=== PATIENT | female | born 1995 | race Caucasian/White ===

== ENCOUNTER → 2017-11-01 | Outpatient (CLI) | payer OTHER | LOC: FIMAGING 14:55 | DX: R06.02 Shortness of breath (principal); R07.89 Other chest pain ==

== ENCOUNTER → 2017-11-02 | Outpatient (CLI) | payer OTHER | LOC: FIMAGING 13:02 | DX: R22.31 Localized swelling, mass and lump, right upper limb (principal) ==

== ENCOUNTER 2017-11-16 23:05 | Emergency (ER) | payer OTHER ==
[2017-11-16] MEDS ORDERED: NS 1,000 ML IV ONE (23:18)
--- NOTE | 2017-11-16 23:22 | CPEKG ---
Heart Rate: 139 RR Interval: 432 P-R Interval: 128 QRSD Interval: 78 QT Interval: 276 QTC Interval: 420 P [place]: 76 QRS [place]: 63 T Wave [place]: -73 EKG Severity - ABNORMAL ECG - EKG Impression: SINUS TACHYCARDIA EKG Impression: INFERIOR Q WAVES, PROBABLY NORMAL VARIATION EKG Impression: REPOL ABNRM SUGGESTS ISCHEMIA, DIFFUSE LEADS Electronically Signed By: [place] 17-Nov-2017 07:40:31
--- NOTE | 2017-11-16 23:37 | EDPHY ---
H & P Stated Complaint: syncope ETOH and MJ Time Seen by Provider: 11/16/17 23:22 HPI/ROS: HPI The patient presents with episode of ALOC which occurred just prior to arrival. She was drinking alcohol and used a marijuana edible 10 mg. She was standing in the hallway and then began to feel lightheaded and then lost consciousness. This was witnessed by 2 friends. She does not have any chest pain, shortness of breath, palpitations. She does have a history of syncopal episodes as a a high school student. She now is feeling anxious, however denies any other complaint.. REVIEW OF SYSTEMS Constitutional: No fever, no chills. Eyes: No discharge. ENT: No sore throat. Cardiovascular: No chest pain, no palpitations. Respiratory: No cough, no shortness of breath. Gastrointestinal: No abdominal pain, no vomiting. Genitourinary: No hematuria. Musculoskeletal: No back pain. Skin: No rashes. Neurological: No headache. PMHx: History of asthma Soc Hx: Marijuana and alcohol use tonight PHYSICAL General Appearance: Alert, somewhat anxious Eyes: Pupils equal and round no pallor or injection ENT, Mouth: Mucous membranes moist Respiratory: There are no retractions, lungs are clear to auscultation Cardiovascular: Tachycardic rate and regular rhythm Gastrointestinal: Abdomen is soft and non-tender, no masses, bowel sounds normal Neurological: A&O, moves all extremities Skin: Warm and dry, no rashes Musculoskeletal: Neck is supple non tender Extremities: symmetrical, full range of motion Psychiatric: Patient is oriented X 3, there is no agitation Source: Patient, EMS Exam Limitations: Intoxication - Personal History Current Tetanus/Diphtheria Vaccine: Yes Current Tetanus Diphtheria and Acellular Pertussis (TDAP): Yes - Medical/Surgical History Hx Asthma: Yes Hx Chronic Respiratory Disease: No Hx Diabetes: No Hx Cardiac Disease: No Hx Renal Disease: No Hx Cirrhosis: No Hx Alcoholism: No Hx HIV/AIDS: No Hx Splenectomy or Spleen Trauma: No Other PMH: asthma - Social History Smoking Status: Never smoked Constitutional: Initial Vital Signs Temperature (C) 37.1 C 11/16/17 23:12 Heart Rate 140 H 11/16/17 23:12 Respiratory Rate 18 11/16/17 23:12 Blood Pressure 126/76 H 11/16/17 23:12 O2 Sat (%) 98 11/16/17 23:12 O2 Delivery Mode Room Air Allergies/Adverse Reactions: cephalexin [From Keflex] Allergy (Verified 11/16/17 23:14) Home Medications: Medication Instructions Recorded Zoloft 25mg (*) 11/16/17 Medical Decision Making - Diagnostics EKG Interpretation: EKG: Complete interpretation has been separately recorded in the [facility] archive. Summary impression: Sinus tachycardia Differential Diagnosis: 22-year-old healthy female presents with episode of ALOC with preceding lightheadedness. This is in the setting of alcohol and marijuana use tonight. On arrival, she is tachycardic without any other physical findings or complaints. She is receiving IV fluids. I have offered her Ativan, however she declines. I suspect she experienced a vasovagal episode in the setting of drug use. She does have a history of syncopal episodes in high school. I have considered arrhythmia and ectopic as well. EKG was unremarkable, basic labs were normal. The patient's heart rate improved from the 140s to 100s after several hours and with IV fluids. She eventually felt well enough to go home. Her mother was able to pick her up and she was discharged from the emergency department in good condition. - Data Points Laboratory Results: Laboratory Results 11/16/17 23:21 11/16/17 23:21 11/16/17 11/16/17 11/16/17 23:21 23:21 23:21 WBC 13.26 10^3/uL H 10^3/uL (3.80-9.50) RBC 5.28 10^6/uL 10^6/uL (4.18-5.33) Hgb 15.3 g/dL g/dL (12.6-16.3) Hct 44.2 % % (38.0-47.0) MCV 83.7 fL fL (81.5-99.8) MCH 29.0 pg pg (27.9-34.1) MCHC 34.6 g/dL g/dL (32.4-36.7) RDW 12.0 % % (11.5-15.2) Plt Count 426 10^3/uL H 10^3/uL (150-400) MPV 9.6 fL fL (8.7-11.7) Neut % (Auto) 53.3 % % (39.3-74.2) Lymph % (Auto) 36.0 % % (15.0-45.0) [place] % (Auto) 6.3 % % (4.5-13.0) Eos % (Auto) 2.7 % % (0.6-7.6) Baso % (Auto) 0.9 % % (0.3-1.7) Nucleat RBC Rel Count 0.0 % % (0.0-0.2) Absolute Neuts (auto) 7.06 10^3/uL H 10^3/uL (1.70-6.50) Absolute Lymphs (auto) 4.77 10^3/uL H 10^3/uL (1.00-3.00) Absolute Monos (auto) 0.84 10^3/uL H 10^3/uL (0.30-0.80) Absolute Eos (auto) 0.36 10^3/uL 10^3/uL (0.03-0.40) Absolute Basos (auto) 0.12 10^3/uL H 10^3/uL (0.02-0.10) Absolute Nucleated RBC 0.00 10^3/uL 10^3/uL (0-0.01) Immature Gran % 0.8 % % (0.0-1.1) Immature Gran # 0.11 10^3/uL H 10^3/uL (0.00-0.10) Sodium 142 mEq/L mEq/L (135-145) Potassium 4.3 mEq/L mEq/L (3.3-5.0) Chloride 104 mEq/L mEq/L (97-110) Carbon Dioxide 24 mEq/l mEq/l (22-31) Anion Gap 14 mEq/L mEq/L (8-16) BUN 14 mg/dL mg/dL (7-23) Creatinine 0.7 mg/dL mg/dL (0.6-1.0) Estimated GFR > 60 Glucose 124 mg/dL H mg/dL (70-100) Calcium 10.1 mg/dL mg/dL (8.5-10.4) Beta HCG, Qual NEGATIVE Medications Given: Discontinued Medications Sodium Chloride (Ns) 1,000 mls @ 0 mls/hr IV ONCE ONE PRN Reason: Wide Open Stop: 11/16/17 23:19 Last Admin: 11/16/17 23:27 Dose: 1,000 mls Departure - Departure Disposition: Home, Routine, Self-Care Clinical Impression: Syncope, Marijuana use, Alcohol use Condition: Good Instructions: Syncope (ED) Additional Instructions: Please make sure to drink plenty of fluids. You should return to the emergency department if your worse in any way. Referrals: Patient,NotPresent [Unknown] - As per Instructions
[2017-11-16 23:50] LABS: PLATELET COUNT 426 10^3/uL (150-400)
[2017-11-17 02:55] VITALS: BP 111/71
== END 2017-11-17 02:55 | disposition home or self-care (01) ==
LOC: EDUNIT#
DX: R55 Syncope and collapse (principal); F12.90 Cannabis use, unspecified, uncomplicated; F10.929 Alcohol use, unspecified with intoxication, unspecified; J45.909 Unspecified asthma, uncomplicated